=== PATIENT | male | born 1985 | race Caucasian/White ===

== ENCOUNTER 2018-11-13 04:23 | Emergency (ER) | payer OTHER, MEDICAID ==
[2018-11-13] MEDS: ACETAMINOPHEN 500 MG TAB PO (04:43)
[2018-11-13 05:02] LABS: URINE BLOOD (Dip) POC 2+ (NEGATIVE); URINE GLUCOSE (Dip) POC Negative (NEGATIVE); URINE KETONES (Dip) POC 1+ (NEGATIVE); URINE LEUKOCYTE EST (Dip) POC 1+ (NEGATIVE); URINE NITRITE (Dip) POC Negative (NEGATIVE); URINE TOTAL PROTEIN POC 2+ (NEGATIVE)
[2018-11-13] MEDS: AZITHROMYCIN 250 MG TAB PO (05:17)
[2018-11-13] MEDS: CEFTRIAXONE 250 MG INJ IM (05:18)
== END 2018-11-13 05:43 | disposition home or self-care (01) ==
LOC: FTE 04:23
DX: R05 Cough (principal); R51 Headache; N30.90 Cystitis, unspecified without hematuria
CPT/HCPCS: 81003; 87086; 96372; 99284-25